=== PATIENT | male | born 1955 | race Caucasian/White ===

== ENCOUNTER 2020-04-14 06:01 | Day surgery (SDC) | payer SELFPAY ==
--- NOTE | 2020-04-05 09:05 | HP_ITS ---
Intake Vital Signs 04/05/20 Height 5 ft 9 in 04/05/20 Weight: 209 lb 7 oz 04/05/20 BMI 30.9 04/05/20 BP 141/73 H 04/05/20 Blood Pressure Location Rt brachial 04/05/20 Position Sitting 04/05/20 Respiration 20 H 04/05/20 Pulse 72 04/05/20 Temp 98.6 F 04/05/20 Temp Source Temporal 04/05/20 Pulse Oximetry (%) 98 Intake Visit Reasons: PORT PLACEMENT Chief Complaint: port consult Genetic Counsellor Required: No Is patient in pain?: No Allergies No Known Allergies Allergy (Verified 04/05/20 08:22) Medications gabapentin 100 mg capsule 300 mg PO DAILY PRN cap 04/05/20 [History] PFSH Medical History (Updated 04/05/20 @ 09:[address] John Anand MD) Pityriasis rubra pilaris (Acute) Psoriasis (Acute) Lymphoma (Acute) Surgical History History of cataract surgery (Acute) Family History (Updated 04/05/20 @ 08:21 by Thania Rutherford) Mother Cancer Other No pertinent family history Social History (Updated 04/05/20 @ 09:[address] John Anand MD) Smoking Status: Light Smoker (<10/day) HPI HPI HPI: ALFONSO KENYON, is a 64 M who presents to the office today for HPI HPI Surgical H&P: Yes HPI: ALFONSO KENYON, is a 64 M who presents to the office today for port evaluation. I discussed port placement with the patient. The patient has lymphoma and is requiring access for Keytruda. ROS General General: Yes fatigue; no weight change, appetite, colon cancer, breast cancer or weakness HEENT HEENT: Yes eye surgery; no difficulty swallowing, eye injury, swollen glands or hoarseness Endo Endocrine: No thyroid disease, diabetes mellitus, thyroid cancer, Hair loss, heat intolerance or cold intolerance Skin Skin: Yes rash; no changing moles Musc Musculoskeletal: No back problems, arthritis, rheumatoid arthritis, gout or joint pain Cardio Cardiovascular: No murmur, pacemaker, heart disease, atrial fibrillation, high blood pressure, heart attack, heart stent, palpitations, shortness of breat with exertion or chest pain Psych Psychiatric: No depression, anxiety or hearing voices Resp Respiratory: No shortness of breath, No sleep apnea, No cough, No COPD, No asthma, No emphysema, No wheezing Gastro Gastrointestinal: No abdominal pain, No nausea or vomiting, No diarrhea, No constipation, No blood in stool, No acid reflux, No hemorrhoids, No ulcers, No gallbladder problem, No black,tarry stools Geovany Hematologic: No blood thinners, No blood disorders, No bleeding, No anemia, No blood clots Neuro Neurologic: No weakness Exam Const General: cooperative Orientation: alert, oriented x3 Resp Effort & Inspection: normal respiratory effort Auscultation: clear to auscultation bilaterally Cardio Rate: regular rate Rhythm: regular rhythm Heart Sounds: no murmurs GI Inspection: non-distended Palpation: soft, nontender Assessment & Plan Problems 1. Adjustment and management of vascular access device Z45.2 2. 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 The patient is seeing he has oncologist today for chemo education. The patient has not fully decided if he is having treatment until he hears more about the medication. If he does hear more about the medication he will call us and schedule port placement. I discussed the risks of the procedure including but not limited to bleeding, infection, pneumothorax, line infection, DVT. The patient understands the risks and is well to proceed if he decides to proceed with Keytruda. We discussed the current risks associated with COVID-19. While it is understood that there is a community spread of COVID-19, the risk of gamal COVID-19 while at [facility] ([facility]) is very low; however, the risk cannot be completely mitigated because of the community spread of the disease. We discussed in detail the risk of exposure to and/or potential harm posed by the COVID-19 virus with having a surgery/procedure at this time versus the risk of delaying the surgery/procedure. It is not possible to know either the risk of delaying the surgery or procedure or chance of getting an infection with perfect accuracy, but a joint decision was made to proceed at this time with the scheduled surgery/procedure as indicated on the consent form. Patient was notified that we will need to comply with any screening or testing [facility] wishes to perform or that surgery may be delayed for any positive results. 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 There are no clinical changes since date of exam.
[2020-04-05 09:20] VITALS: BMI 30.2
[2020-04-14] VITALS (9 sets, daily range): BP systolic 112–132; BP diastolic 53–75; PULSE 60–82; RESP 16; TEMP 36.4–37.4; O2SAT 97–100; BMI 31.2
[2020-04-14] MEDS: Lactated Ringers 1,000 ML 100 ML IV (07:00)
[2020-04-14] MEDS: Cefazolin 2 GM in 0.9% Normal Saline 100 ML IV (07:36)
[2020-04-14] MEDS: Bupiv/Epi 0.5% Mpf 30 ML Vial (08:00)
--- NOTE | 2020-04-14 08:25 | PCM.OPRPT ---
Problem List (1) Encounter for adjustment and management of vascular access device Status: Acute Report of Operation Date of Procedure: 04/14/20 Pre-Operative Diagnosis: Lymphoma. need for vascular access Post-Operative Diagnosis: Same Surgery/Procedure Performed:: Ultrasound and fluoroscopy guided right chest port placement utilizing right IJ Description of Procedure: After obtaining informed consent patient was brought back to the operating room MAC anesthesia was induced and the right chest and neck were prepped in normal sterile fashion. Ultrasound was used to evaluate both IJs and the right IJ was selected. Next, using a needle, the right IJ was accessed and a guidewire was passed on into the superior vena cava under fluoroscopy guidance. A small incision was made over the puncture site and the dilator introducer was placed over the guidewire. Next this was capped and the pocket was made for the port. 1% lidocaine with epinephrine was injected in the proposed port site. An incision was made with scalpel. Electrocautery was used to make a pocket under the skin and subcutaneous tissue. Hemostasis was obtained. Next, the catheter was tunneled up to the neck incision site and placed through the introducer. The peel-away introducer was removed and the position of the catheter was confirmed on fluoroscopy. Next, the catheter was trimmed and attached to the port with the locking device. Interrupted 2-0 Vicryl sutures were used to anchor the port to the chest wall and then the port was placed inside the pocket. The pocket was then flushed with saline and the port irrigated with saline. There was good blood return and the port flushed easily. Next, heparin was injected into the port. The skin was closed with subcutaneous interrupted 3-0 Vicryl sutures. A single 3-0 Vicryl sutures placed under the skin at the neck incision site. Steri-Strips were placed as well as op sites. Patient tolerated procedure well, was taken to PACU in stable condition. Chest x-ray will be obtained. Grafts/Implants Used: 8 [place] [employer] - Admit VTE Documentation VTE Mechan Device Prophylaxis: SCD's
--- NOTE | 2020-04-14 08:26 | DCINST_ITS ---
Discharge Diet: No Restrictions - Pain medication may cause nausea. You should typically eat light foods as you take your pain medication. Discharge Activity: Return to Normal Activity, May Shower - with your bandage in place in 1-2 days after surgery. DO NOT SHOWER WHEN YOUR PORT IS ACCESSED. Call your doctor if your incision/area has: Continuous Slow Oozing, Sudden Increased Bleeding, Increased Pain/ Swelling, Increased Redness Call your doctor if you observe: Fever of 101 or Higher Remove Dressing in (days):: 3 - When you remove the bandage, leave the steri- strips intact until they fall off. Allergies/Adverse Reactions: Allergies No Known Allergies Allergy (Verified 04/10/20 13:11) Medications to take at Discharge Lidocaine/Prilocaine [Lidocaine-Prilocaine Cream] 1 applicatio TP DAILY PRN PRN 30 Days #1 tube 04/05/20 Multivit-Min/Folic/Vit K/Lycop [Men's Multivitamin Tablet] 1 ea PO DAILY 04/05/20 gabapentin 100 mg capsule 100 mg PO DAILY PRN cap 04/05/20 Primary Care Physician: Robert Santoyo MD [Primary Care Provider] - Test Results: Test results from this visit will be discussed in further detail at your follow- up appointment, if applicable. Please Follow Up With: John Anand MD When: Please call to schedule 2 week follow up appointment. [phone]
--- NOTE | 2020-04-14 08:30 | RAD_ITS ---
STUDY: X-RAY CHEST REASON FOR EXAM: Male, 64 years old. POST PORT PLACEMENT TECHNIQUE: Single AP portable view of the chest. COMPARISON: None. FINDINGS: A right-sided portacatheter has been placed. The tip is at the junction of superior vena cava and right atrium. The lungs are clear and expanded. There is no demonstrated pleural abnormality. Normal size heart. Normal mediastinum and rd. Normal visualized pulmonary arteries. Normal visualized aortic arch and descending thoracic aorta. There are diffuse degenerative changes of the visualized thoracic spine. There is degenerative osteoarthritis of the bilateral shoulders. There is no demonstrated abnormality of the visualized soft tissue structures of the upper abdomen. RAD/CXR for Line Placement IMPRESSION: The tip of the right briseyda catheter is at the junction of the superior vena cava and right atrium. Electronically Signed: Beto Mesa, at 9:10 EDT , Service support ,
== END 2020-04-14 09:51 | disposition home or self-care (01) ==
LOC: SDC 06:04 → AC 06:07
PROVIDERS: Anesthesiology; PCP Family Medicine; Referring Provider Surgery; Visit Provider Surgery
PROC: (CPT 36561; principal; 2020-04-14 07:15)
DX: Z45.2 Encounter for adjustment and management of vascular access device (principal); C84.00 Mycosis fungoides, unspecified site; F17.200 Nicotine dependence, unspecified, uncomplicated; Z11.59 Encounter for screening for other viral diseases
CPT/HCPCS: 36561; 71045; 77001; 87635; G2023; J7120; C1788; U0003

== ENCOUNTER 2020-12-21 08:45 | Outpatient (RCR) | payer OTHER, SELFPAY ==
[2020-12-06 09:20] VITALS: BMI 31.4
[2020-12-14 09:21] VITALS: BP 146/67; PULSE 73; RESP 20; TEMP 36.6; BMI 31.4
--- NOTE | 2020-12-14 13:22 | PCM.WC.HP ---
(1) Ulcer of left lower extremity with fat layer exposed Status: Chronic Code(s): L97.922 - Non-pressure chronic ulcer of unspecified part of left lower leg with fat layer exposed (2) Ulcer of right lower extremity with fat layer exposed Status: Chronic Code(s): L97.912 - Non-pressure chronic ulcer of unspecified part of right lower leg with fat layer exposed (3) Ulcer of upper extremity with fat layer exposed Status: Chronic Code(s): L98.492 - Non-pressure chronic ulcer of skin of other sites with fat layer exposed Comment: Right Forearm (4) Mycosis fungoides lymphoma Status: Chronic Qualifiers: Code(s): C84.00 - Mycosis fungoides, unspecified site Comment: Generalized involvement of skin History of Present Illness Date of Service: 12/14/20 Chief Complaint: Non healing uclers History of Wound: Mr Rodriguez was referred to the wound center By his oncologist due to nonhealing ulcers. Patient states that initial onset was at least 4 to 6 months ago. 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 He states that he has been trying different wound care at home including hydrogen peroxide, Epson salt and antibiotic ointment. No significant improvement. Most concerning is his right lower extremity which has blackened areas. He feels well otherwise. Denies chills, fever, cough or shortness of breath. Continues to work closely with his oncologist. Past Medical History Past Medical History: Chronic Problems (Last Reviewed 12/14/20 @ 11:46 by Belkys Madrigal) Ulcer of left lower extremity with fat layer exposed (Chronic) Ulcer of right lower extremity with fat layer exposed (Chronic) Ulcer of upper extremity with fat layer exposed (Chronic) Right Forearm Anemia (Chronic) Hyperglycemia (Chronic) Mycosis fungoides lymphoma (Chronic) Generalized involvement of skin Allergies/Adverse Reactions: Allergies No Known Allergies Allergy (Verified 12/06/20 09:18) Home Medications: Ambulatory Orders Medication Instructions Recorded Lidocaine/Prilocaine 1 applicatio TP DAILY PRN PRN 30 04/05/20 [Lidocaine-Prilocaine Cream] Days #1 tube Multivit-Min/Folic/Vit K/Lycop 1 ea PO DAILY 04/05/20 [Men's Multivitamin Tablet] Protocel 1.25 ml PO BID 04/18/20 Gabapentin [Neurontin] 100 mg PO DAILY #100 cap 01/13/21 Aspirin E.C. [Ecotrin] 81 mg PO DAILY@0800 12/06/20 Iron Liquid Drops 4 - 5 drp PO DAILY 12/06/20 Smoking Status: Current some day smoker Review of Systems Constitutional: Denies: Anorexia, Chills, Fever, Malaise Eyes: Denies: Blurred vision, Pain, Redness HEENT: Denies: Difficulty Hearing, Difficulty Swallowing, Sore Throat Cardiovascular: Denies: Chest Pain, Claudication, Chest Pressure, Chest Tightness Respiratory: Denies: Cough, Hemoptysis, Wheezing Gastrointestinal: Denies: Abdominal Pain, Hematemesis, Vomiting Genitourinary: Denies: Hematuria Skin: Denies: Jaundice - Physical Exam Vital Signs Temp Pulse Resp BP 98 F 73 20 H 146/67 H 12/14/20 09:21 12/14/20 09:21 12/14/20 09:21 12/14/20 09:21 General: Alert, Oriented x3, Cooperative, No apparent distress HEENT: Atraumatic, Normocephalic Oral: Moist Mucosa Neck: Supple Lungs: Normal air movement Extremities: No cyanosis, Edema Skin: Ulcer/ Wound Wound Measurements and Assessment WC - Nurse 1 - General Ulcer Measurement Start: 12/14/20 09:19 Freq: Status: Active Protocol: Activity Type Activity Date Activity User E-Sign Co-Sign Detail Recorded Client Recorded Date Recorded By Document 12/14/20 09:21 DL [id number] 12/14/20 09:58 DL 12/14/20 09:21 Wound Center Nurse 1 [Ulcer Assessment] #4 L lat LE -Current Size (cm) - Length 4 -Current Size (cm) - Width 5.8 -Current Size (cm) - Depth 0.5 -Total Square Cm 23.2 -Photo Taken No -Exudate Amt Medium -Exudate Type Serosanguineous -Wound Margin Distinct, Outline Attached -Granulation Amt Medium (34-66%) -Granulation Quality Red -Necrosis Amt Medium (34-66%) -Necrotic Tissue Type Adherent Slough -Structure Exposed N/A -Texture (Francisca-wound Skin Appearance) Scarring -Moisture (Francisca-wound Skin Appearance No Abnormality ) -Color (Francisca-wound Skin Appearance) Rubor -Temperature (Francisca-wound Skin No Abnormality Appearance) (Pt Warm) -Tenderness on Palpation (Francisca-wound No Skin Appearance) -Ulcer Cleansing Wound Cleanser -Foul Odor after Cleansing No -Anesthetic Used 4% Lidocaine Solution #3 L Hip -Current Size (cm) - Length 1.6 -Current Size (cm) - Width 1.2 -Current Size (cm) - Depth 0.3 -Total Square Cm 1.92 -Photo Taken Yes -Classification - Thickness Full Thickness without Exposed Support Structure -Exudate Amt Medium -Exudate Type Serosanguineous -Wound Margin Distinct, Outline Attached -Granulation Amt None Present (0 %) -Necrosis Amt Large (67-100%) -Necrotic Tissue Type Adherent Slough -Structure Exposed N/A -Texture (Francisca-wound Skin Appearance) Scarring -Moisture (Francisca-wound Skin Appearance No Abnormality ) -Color (Francisca-wound Skin Appearance) Rubor -Temperature (Francisca-wound Skin No Abnormality Appearance) (Pt Warm) -Tenderness on Palpation (Francisca-wound No Skin Appearance) -Ulcer Cleansing Wound Cleanser -Foul Odor after Cleansing No -Anesthetic Used 4% Lidocaine Solution #2 R Knee -Current Size (cm) - Length 6.2 -Current Size (cm) - Width 10.2 -Current Size (cm) - Depth 0.6 -Total Square Cm 63.24 -Photo Taken Yes -Classification - Thickness Full Thickness without Exposed Support Structure -Exudate Amt Large -Exudate Type Serosanguineous -Wound Margin Distinct, Outline Attached -Granulation Amt Small (1-33%) -Granulation Quality Red -Necrosis Amt Large (67-100%) -Necrotic Tissue Type Adherent Slough -Structure Exposed N/A -Texture (Francisca-wound Skin Appearance) Localized Edema ,Scarring -Moisture (Francisca-wound Skin Appearance Weeping ) -Color (Francisca-wound Skin Appearance) Erythema -Temperature (Francisca-wound Skin No Abnormality Appearance) (Pt Warm) -Tenderness on Palpation (Francisca-wound No Skin Appearance) -Ulcer Cleansing Wound Cleanser -Foul Odor after Cleansing Yes -Anesthetic Used 4% Lidocaine Solution #1 RIGHT Arm -Current Size (cm) - Length 2.2 -Current Size (cm) - Width 3.3 -Current Size (cm) - Depth 0.3 -Total Square Cm 7.26 -Photo Taken Yes -Exudate Amt Medium -Exudate Type Serosanguineous -Wound Margin Distinct, Outline Attached -Granulation Amt Medium (34-66%) -Granulation Quality Red -Necrosis Amt Medium (34-66%) -Necrotic Tissue Type Adherent Slough -Structure Exposed N/A -Texture (Francisca-wound Skin Appearance) Localized Edema ,Scarring -Moisture (Francisca-wound Skin Appearance No Abnormality ) -Color (Francisca-wound Skin Appearance) Erythema,Palor -Temperature (Francisca-wound Skin No Abnormality Appearance) (Pt Warm) -Tenderness on Palpation (Francisca-wound No Skin Appearance) -Ulcer Cleansing Wound Cleanser -Foul Odor after Cleansing No -Anesthetic Used 4% Lidocaine Solution WC - Nurse 2 - General Ulcer CM Notes Start: 12/14/20 09:19 Freq: Status: Active Protocol: Activity Type Activity Date Activity User E-Sign Co-Sign Detail Recorded Client Recorded Date Recorded By Document 12/14/20 10:22 MW [id number] 12/14/20 10:38 MW 12/14/20 10:22 Wound Center Nurse 2 [Procedure/Treatment] #4 L lat LE -Time 10:34 -Correct Patient Yes -Correct Side, Site, Position Yes -Correct Procedure Yes -Procedure Performed No -Wound/Ulcer Outcome Not Healed #3 L Hip -Time 10:34 -Correct Patient Yes -Correct Side, Site, Position Yes -Correct Procedure Yes -Procedure Performed No -Wound/Ulcer Outcome Not Healed #2 R Knee -Time 10:34 -Correct Patient Yes -Correct Side, Site, Position Yes -Correct Procedure Yes -Procedure Performed No -Wound/Ulcer Outcome Healed- Epithelialized #1 RIGHT Arm -Time 10:34 -Correct Patient Yes -Correct Side, Site, Position Yes -Correct Procedure Yes -Procedure Performed No [See Physician Procedure note for Specifics] Pain Scale: 0-10 Numeric [Pain] -Is Patient Pain Free? Yes Musculoskeletal: No Muscle Wasting Neurological: Cranial nerves II-XII grossly intact Psych/Mental Status: Normal Affect Debridement Note Post-Debridement Measurements/Treatment - Nurse 2 - General Ulcer CM Notes Start: 12/14/20 09:19 Freq: Status: Active Protocol: Activity Type Activity Date Activity User E-Sign Co-Sign Detail Recorded Client Recorded Date Recorded By Document 12/14/20 10:22 MW [id number] 12/14/20 10:38 MW 12/14/20 10:22 Wound Center Nurse 2 #4 L lat LE -Time 10:34 -Correct Patient Yes -Correct Side, Site, Position Yes -Correct Procedure Yes -Procedure Performed No -Wound/Ulcer Outcome Not Healed #3 L Hip -Time 10:34 -Correct Patient Yes -Correct Side, Site, Position Yes -Correct Procedure Yes -Procedure Performed No -Wound/Ulcer Outcome Not Healed #2 R Knee -Time 10:34 -Correct Patient Yes -Correct Side, Site, Position Yes -Correct Procedure Yes -Procedure Performed No -Wound/Ulcer Outcome Healed- Epithelialized #1 RIGHT Arm -Time 10:34 -Correct Patient Yes -Correct Side, Site, Position Yes -Correct Procedure Yes -Procedure Performed No Pain Scale: 0-10 Numeric Is Patient Pain Free? Yes No debridement was completed today Assessment/Plan Active Problems (Last Reviewed 12/14/20 @ 11:46 by Belkys Madrigal) Ulcer of left lower extremity with fat layer exposed (Chronic) Ulcer of right lower extremity with fat layer exposed (Chronic) Ulcer of upper extremity with fat layer exposed (Chronic) Right Forearm Mycosis fungoides lymphoma (Chronic) Generalized involvement of skin Assessment: Generalized areas of ulceration secondary to mycosis fungoides Plan: No debridement completed today. Patient not open to debridement. Most significant ulcer is on his right lower extremity with areas of necrotic tissue. Santyl to right lower extremity and hydrogel to all other ulcers. Cover with moistened gauze. Change daily to twice daily depending on drainage. Double layer Tubigrip for edema management. He was advised to increase protein intake, vitamin C and zinc. He voiced understanding. His questions were answered and he was advised to call with any further questions or concerns. Follow-up in a week. This note was generated with MyCheck dictation software. It may contain incorrect words, spelling, and punctuation that were not noted in checking the note before signing. Office Visits / Consults: [id number] OV L4 New
[2020-12-21 08:23] VITALS: BP 157/69; PULSE 77; TEMP 36.5; BMI 31.4
--- NOTE | 2020-12-21 09:50 | PN.PCM_ITS ---
(1) Ulcer of left lower extremity with fat layer exposed Status: Chronic Code(s): L97.922 - Non-pressure chronic ulcer of unspecified part of left lower leg with fat layer exposed (2) Ulcer of right lower extremity with fat layer exposed Status: Chronic Code(s): L97.912 - Non-pressure chronic ulcer of unspecified part of right lower leg with fat layer exposed (3) Ulcer of upper extremity with fat layer exposed Status: Chronic Code(s): L98.492 - Non-pressure chronic ulcer of skin of other sites with fat layer exposed Comment: Right Forearm (4) Mycosis fungoides lymphoma Status: Chronic Qualifiers: Code(s): C84.00 - Mycosis fungoides, unspecified site Comment: Generalized involvement of skin Type of Wound Date of Service: 12/21/20 Chief Complaint: Non healing uclers History of Wound: Mr Rodriguez was referred to the wound center By his oncologist due to nonhealing ulcers. Patient states that initial onset was at least 4 to 6 months ago. 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 He states that he has been trying different wound care at home including hydrogen peroxide, Epson salt and antibiotic ointment. No significant improvement. Most concerning is his right lower extremity which has blackened areas. He feels well otherwise. Denies chills, fever, cough or shortness of breath. Continues to work closely with his oncologist. Progress of Wound: No new concerns at this time. Tolerating Santyl and hydrogel without any concerns. Left thigh ulcer with minimal area left. Right knee with better granulation. - Physical Exam Vital Signs Temp Pulse Resp BP 97.7 F L 77 20 H 157/69 H 12/21/20 08:23 12/21/20 08:23 12/14/20 09:21 12/21/20 08:23 General: Alert, Oriented x3, Cooperative, No apparent distress HEENT: Atraumatic, Normocephalic Oral: Moist Mucosa Lungs: Normal air movement Extremities: No cyanosis, Edema Skin: Ulcer/ Wound Wound Measurements and Assessment WC - Nurse 1 - General Ulcer Measurement Start: 12/14/20 09:19 Freq: Status: Active Protocol: Activity Type Activity Date Activity User E-Sign Co-Sign Detail Recorded Client Recorded Date Recorded By Document 12/21/20 08:23 WINNIE [id number] 12/21/20 08:37 WINNIE 12/21/20 08:23 Wound Center Nurse 1 [Ulcer Assessment] #4 L lat LE -Current Size (cm) - Length 2.4 -Current Size (cm) - Width 5.8 -Current Size (cm) - Depth 0.2 -Total Square Cm 13.92 -Exudate Amt Medium -Exudate Type Serosanguineous -Wound Margin Distinct, Outline Attached -Granulation Amt Medium (34-66%) -Granulation Quality Red -Necrosis Amt Medium (34-66%) -Necrotic Tissue Type Adherent Slough -Texture (Francisca-wound Skin Appearance) Assessed, Scarring -Moisture (Francisca-wound Skin Appearance No Abnormality, ) Assessed -Color (Francisca-wound Skin Appearance) No Abnormality, Assessed -Temperature (Francisca-wound Skin No Abnormality Appearance) (Pt Warm) -Tenderness on Palpation (Francisca-wound No Skin Appearance) -Ulcer Cleansing Rinsed/ Irrigated with Saline -Foul Odor after Cleansing No -Anesthetic Used 4% Lidocaine Solution #3 L Hip -Current Size (cm) - Length 0.2 -Current Size (cm) - Width 0.3 -Current Size (cm) - Depth 0.1 -Total Square Cm 0.06 -Exudate Amt Medium -Exudate Type Serosanguineous -Wound Margin Distinct, Outline Attached -Granulation Amt None Present (0 %) -Necrosis Amt None Present (0 %) -Texture (Francisca-wound Skin Appearance) Assessed, Scarring -Moisture (Francisca-wound Skin Appearance Assessed,Dry/ ) Scaly -Color (Francisca-wound Skin Appearance) No Abnormality, Assessed -Temperature (Francisca-wound Skin No Abnormality Appearance) (Pt Warm) -Tenderness on Palpation (Francisca-wound No Skin Appearance) -Ulcer Cleansing Rinsed/ Irrigated with Saline -Foul Odor after Cleansing No -Anesthetic Used 4% Lidocaine Solution #2 R Knee -Current Size (cm) - Length 7 -Current Size (cm) - Width 10 -Current Size (cm) - Depth 1 -Total Square Cm 70 -Exudate Amt Large -Exudate Type Serosanguineous -Wound Margin Distinct, Outline Attached -Granulation Amt Large (67-100%) -Granulation Quality Red -Necrosis Amt Medium (34-66%) -Necrotic Tissue Type Adherent Slough -Structure Exposed Fat Layer Exposed -Texture (Francisca-wound Skin Appearance) Assessed, Scarring -Moisture (Francisca-wound Skin Appearance Assessed, ) Maceration -Color (Francisca-wound Skin Appearance) No Abnormality, Assessed -Temperature (Francisca-wound Skin No Abnormality Appearance) (Pt Warm) -Tenderness on Palpation (Francisca-wound No Skin Appearance) -Ulcer Cleansing Rinsed/ Irrigated with Saline -Foul Odor after Cleansing Yes -Anesthetic Used 4% Lidocaine Solution #1 RIGHT Arm -Current Size (cm) - Length 2.5 -Current Size (cm) - Width 3.7 -Current Size (cm) - Depth 0.5 -Total Square Cm 9.25 -Exudate Amt Large -Exudate Type Serosanguineous -Wound Margin Thickened -Granulation Amt Large (67-100%) -Granulation Quality Red -Necrosis Amt Small (1-33%) -Necrotic Tissue Type Adherent Slough -Texture (Francisca-wound Skin Appearance) Assessed, Scarring -Moisture (Francisca-wound Skin Appearance Assessed ) -Color (Francisca-wound Skin Appearance) Assessed -Temperature (Francisca-wound Skin No Abnormality Appearance) (Pt Warm) -Tenderness on Palpation (Francisca-wound No Skin Appearance) -Ulcer Cleansing Rinsed/ Irrigated with Saline -Foul Odor after Cleansing No -Anesthetic Used 4% Lidocaine Solution [Edema Assessment] -Right Calf (cm) 40 -Right Ankle (cm) 26 -Left Calf (cm) 38 -Left Ankle (cm) 28.5 WC - Nurse 2 - General Ulcer CM Notes Start: 12/14/20 09:19 Freq: Status: Active Protocol: Activity Type Activity Date Activity User E-Sign Co-Sign Detail Recorded Client Recorded Date Recorded By Document 12/21/20 08:47 MW [id number] 12/21/20 09:08 MW 12/21/20 08:47 Wound Center Nurse 2 [Procedure/Treatment] #4 L lat LE -Time 08:48 -Correct Patient Yes -Correct Side, Site, Position Yes -Correct Procedure Yes -Procedure Performed Yes -Type of Procedure Debridement -Clinical Debridement Subcutaneous -Tissue Removed Subcutaneous -Post Debridement (cm) - Length 5.0 -Post Debridement (cm) - Width 6.0 -Post Debridement (cm) - Depth 0.1 -Total Square (Post) (cm) 30.00 -Area of Debridement (cm) - Length 5.0 -Area of Debridement (cm) - Width 6.0 -Total Square (Area) (cm) 30.00 -Tunneling No -Undermining/Tunneling No -Circular Undermining No -Wound/Ulcer Outcome Not Healed -Ulcer Cleansing Not Cleansed -Foul Odor after Cleansing No -Bioengineered Tissue No -Bleeding Controlled with NA -Offloading No -Treatment Response Procedure Tolerated Well -Debridement - Subq, 1st 20sq cm Yes -Debridement, SubQ, ea addt'l 20sq cm 1 or part thereof #3 L Hip -Time 08:48 -Correct Patient Yes -Correct Side, Site, Position Yes -Correct Procedure Yes -Procedure Performed No -Tunneling No -Undermining/Tunneling No -Circular Undermining No -Wound/Ulcer Outcome Not Healed -Ulcer Cleansing Rinsed/ Irrigated with Saline -Foul Odor after Cleansing No -Bioengineered Tissue No -Bleeding Controlled with Pressure -Offloading No -Treatment Response Procedure Tolerated Well #2 R Knee -Time 08:49 -Correct Patient Yes -Correct Side, Site, Position Yes -Correct Procedure Yes -Procedure Performed No -Tunneling No -Undermining/Tunneling No -Circular Undermining No -Wound/Ulcer Outcome Not Healed -Ulcer Cleansing Not Cleansed -Foul Odor after Cleansing No -Bioengineered Tissue No -Bleeding Controlled with NA -Treatment Response Procedure Tolerated Well #1 RIGHT Arm -Time 08:50 -Correct Patient Yes -Correct Side, Site, Position Yes -Correct Procedure Yes -Procedure Performed Yes -Type of Procedure Debridement -Clinical Debridement Subcutaneous -Tissue Removed Subcutaneous -Post Debridement (cm) - Length 2.5 -Post Debridement (cm) - Width 5.0 -Post Debridement (cm) - Depth 0.3 -Total Square (Post) (cm) 12.50 -Area of Debridement (cm) - Length 2.5 -Area of Debridement (cm) - Width 5.0 -Total Square (Area) (cm) 12.50 -Tunneling No -Undermining/Tunneling No -Circular Undermining No -Wound/Ulcer Outcome Not Healed -Ulcer Cleansing Rinsed/ Irrigated with Saline -Foul Odor after Cleansing No -Bioengineered Tissue No -Bleeding Controlled with Pressure -Offloading No -Debridement - Subq, 1st 20sq cm No [See Physician Procedure note for Specifics] Pain Scale: 0-10 Numeric [Pain] -Is Patient Pain Free? Yes WC - Nurse 3 - General Ulcer D/C NN Start: 12/14/20 09:19 Freq: Status: Active Protocol: Activity Type Activity Date Activity User E-Sign Co-Sign Detail Recorded Client Recorded Date Recorded By Document 12/21/20 09:18 KR [id number] 12/21/20 09:24 KR 12/21/20 09:18 Wound Care Nurse 3 [Wound Dressing] #4 L lat LE -Ulcer Cleansing Rinsed/ Irrigated with Saline -Primary Dressing Applied C Hydrogel ($) -Primary Dressing Covered/Secured Dry Gauze, with Secured with Tape #3 L Hip -Ulcer Cleansing Rinsed/ Irrigated with Saline -Primary Dressing Applied C Hydrogel ($) -Primary Dressing Covered/Secured Dry Gauze,Dry with Gauze & Roll Gauze,Secured with Tape #2 R Knee -Ulcer Cleansing Rinsed/ Irrigated with Saline -Primary Dressing Covered/Secured Dry Gauze, with Secured with Tape #1 RIGHT Arm -Ulcer Cleansing Rinsed/ Irrigated with Saline -Primary Dressing Applied C Hydrogel ($) -Primary Dressing Covered/Secured Dry Gauze,Dry with Gauze & Roll Gauze,Secured with Tape [Compression Applied] Left -Tubular Bandage Double Layer -Size of Tubigrip Used Size F -Size F ($) 2 Pain Scale: 0-10 Numeric [Pain] -Is Patient Pain Free? Yes - Visit Discharge [Visit Discharge Information] -Discharge Condition Stable -Ambulatory Status Ambulatory -Transportation Private Auto -Accompanied by Musculoskeletal: No Muscle Wasting Neurological: Cranial nerves II-XII grossly intact Psych/Mental Status: Normal Affect Debridement Note Post-Debridement Measurements/Treatment - Nurse 2 - General Ulcer CM Notes Start: 12/14/20 09:19 Freq: Status: Active Protocol: Activity Type Activity Date Activity User E-Sign Co-Sign Detail Recorded Client Recorded Date Recorded By Document 12/14/20 10:22 MW [id number] 12/14/20 10:38 MW Document 12/21/20 08:47 MW [id number] 12/21/20 09:08 MW 12/14/20 12/21/20 10:22 08:47 Wound Center Nurse 2 #4 L lat LE -Time 10:34 08:48 -Correct Patient Yes Yes -Correct Side, Site, Position Yes Yes -Correct Procedure Yes Yes -Procedure Performed No Yes -Type of Procedure Debridement -Clinical Debridement Subcutaneous -Tissue Removed Subcutaneous -Post Debridement (cm) - Length 5.0 -Post Debridement (cm) - Width 6.0 -Post Debridement (cm) - Depth 0.1 -Total Square (Post) (cm) 30.00 -Area of Debridement (cm) - Length 5.0 -Area of Debridement (cm) - Width 6.0 -Total Square (Area) (cm) 30.00 -Tunneling No -Undermining/Tunneling No -Circular Undermining No -Wound/Ulcer Outcome Not Healed Not Healed -Ulcer Cleansing Not Cleansed -Foul Odor after Cleansing No -Bioengineered Tissue No -Bleeding Controlled with NA -Offloading No -Treatment Response Procedure Tolerated Well -Debridement - Subq, 1st 20sq cm Yes -Debridement, SubQ, ea addt'l 20sq cm 1 or part thereof #3 L Hip -Time 10:34 08:48 -Correct Patient Yes Yes -Correct Side, Site, Position Yes Yes -Correct Procedure Yes Yes -Procedure Performed No No -Tunneling No -Undermining/Tunneling No -Circular Undermining No -Wound/Ulcer Outcome Not Healed Not Healed -Ulcer Cleansing Rinsed/ Irrigated with Saline -Foul Odor after Cleansing No -Bioengineered Tissue No -Bleeding Controlled with Pressure -Offloading No -Treatment Response Procedure Tolerated Well #2 R Knee -Time 10:34 08:49 -Correct Patient Yes Yes -Correct Side, Site, Position Yes Yes -Correct Procedure Yes Yes -Procedure Performed No No -Tunneling No -Undermining/Tunneling No -Circular Undermining No -Wound/Ulcer Outcome Healed- Not Healed Epithelialized -Ulcer Cleansing Not Cleansed -Foul Odor after Cleansing No -Bioengineered Tissue No -Bleeding Controlled with NA -Treatment Response Procedure Tolerated Well #1 RIGHT Arm -Time 10:34 08:50 -Correct Patient Yes Yes -Correct Side, Site, Position Yes Yes -Correct Procedure Yes Yes -Procedure Performed No Yes -Type of Procedure Debridement -Clinical Debridement Subcutaneous -Tissue Removed Subcutaneous -Post Debridement (cm) - Length 2.5 -Post Debridement (cm) - Width 5.0 -Post Debridement (cm) - Depth 0.3 -Total Square (Post) (cm) 12.50 -Area of Debridement (cm) - Length 2.5 -Area of Debridement (cm) - Width 5.0 -Total Square (Area) (cm) 12.50 -Tunneling No -Undermining/Tunneling No -Circular Undermining No -Wound/Ulcer Outcome Not Healed -Ulcer Cleansing Rinsed/ Irrigated with Saline -Foul Odor after Cleansing No -Bioengineered Tissue No -Bleeding Controlled with Pressure -Offloading No -Debridement - Subq, 1st 20sq cm No Pain Scale: 0-10 Numeric Is Patient Pain Free? Yes Yes WC - Nurse 3 - General Ulcer D/C NN Start: 12/14/20 09:19 Freq: Status: Active Protocol: Activity Type Activity Date Activity User E-Sign Co-Sign Detail Recorded Client Recorded Date Recorded By Document 12/21/20 09:18 WINNIE [id number] 12/21/20 09:24 WINNIE 12/21/20 09:18 Wound Care Nurse 3 #4 L lat LE -Ulcer Cleansing Rinsed/ Irrigated with Saline -Primary Dressing Applied C Hydrogel ($) -Primary Dressing Covered/Secured with Dry Gauze, Secured with Tape #3 L Hip -Ulcer Cleansing Rinsed/ Irrigated with Saline -Primary Dressing Applied C Hydrogel ($) -Primary Dressing Covered/Secured with Dry Gauze,Dry Gauze & Roll Gauze,Secured with Tape #2 R Knee -Ulcer Cleansing Rinsed/ Irrigated with Saline -Primary Dressing Covered/Secured with Dry Gauze, Secured with Tape #1 RIGHT Arm -Ulcer Cleansing Rinsed/ Irrigated with Saline -Primary Dressing Applied C Hydrogel ($) -Primary Dressing Covered/Secured with Dry Gauze,Dry Gauze & Roll Gauze,Secured with Tape Left -Tubular Bandage Double Layer -Size of Tubigrip Used Size F -Size F ($) 2 Pain Scale: 0-10 Numeric Is Patient Pain Free? Yes WC - Visit Discharge Discharge Condition Stable Ambulatory Status Ambulatory Transportation Private Auto Accompanied by Wound debrided: Left knee (cluster) Type of Debridement: Excisional debridement Anesthesia Used: 4% Lidocaine Solution Depth: Down to and including healthy tissue, in the subcutaneous layer Percentage of wound debrided: 100 Instrument Used: 5mm curette Tissue Removed: Slough and devitalized tissue Severity: Fat Layer Exposed Amount of bleeding with debridement: Mild Bleeding Controlled with: Pressure Patient tolerated procedure well - Additional Wound Wound debrided: Right forearm Type of Debridement: Excisional debridement Anesthesia Used: 4% Lidocaine Solution Depth: Down to and including healthy tissue, in the subcutaneous layer Percentage of wound debrided: 100 Instrument Used: 5mm curette Tissue Removed: Slough and devitalized tissue Severity: Fat Layer Exposed Amount of bleeding with debridement: Mild Bleeding Controlled with: Pressure Patient tolerated procedure: Patient tolerated procedure well Assessment/Plan Active Problems (Last Reviewed 12/14/20 @ 11:46 by Belkys Madrigal) Ulcer of left lower extremity with fat layer exposed (Chronic) Ulcer of right lower extremity with fat layer exposed (Chronic) Ulcer of upper extremity with fat layer exposed (Chronic) Right Forearm Mycosis fungoides lymphoma (Chronic) Generalized involvement of skin Assessment: Generalized areas of ulceration secondary to mycosis fungoides Plan: Debridement done as documented above, procedure was well-tolerated. Not open to debridement to right knee. Better granulation tissue noted. Continue Santyl to right lower extremity and hydrogel to all other ulcers. Cover with moistened gauze. Change daily to twice daily depending on drainage. Double layer Tubigrip for edema management. He was advised to increase protein intake, vitamin C and zinc. He voiced understanding. His questions were answered and he was advised to call with any further questions or concerns. Follow-up in a week. This note was generated with [employer] dictation software. It may contain incorrect words, spelling, and punctuation that were not noted in checking the note before signing. [id number]: [id number] Christiane subq tissue 20 sq cm/<
== END 2020-12-24 23:59 ==
LOC: WC 08:45
PROVIDERS: PCP Family Medicine; Referring Provider Internal Medicine Hematology & Oncology; Visit Provider Internal Medicine
DX: L97.812 Non-pressure chronic ulcer of other part of right lower leg with fat layer exposed (principal); C84.00 Mycosis fungoides, unspecified site; L97.822 Non-pressure chronic ulcer of other part of left lower leg with fat layer exposed; L98.492 Non-pressure chronic ulcer of skin of other sites with fat layer exposed; Z79.899 Other long term (current) drug therapy; Z79.82 Long term (current) use of aspirin; F17.200 Nicotine dependence, unspecified, uncomplicated
CPT/HCPCS: 11042; 11045; 99213; G0463

== ENCOUNTER → 2021-01-29 | Outpatient (CLI) | payer SELFPAY ==
--- NOTE | 2021-01-29 | IMM_PTH ---
PATIENT: ALFONSO KENYON LOC: [facility] U#:[id number] AGE/SX: 65/M ROOM: RE01/29/[address]: Dr. John Anand MD : 1955 BED: DIS: 01/29/2021 SPEC #: [id number] RECD: 01/31/21 12:54 STATUS: RICHARD REQ #: [id number] HILARY: 01/29/21 00:[address]: John Anand DEPT: IMMUNOHISTOCHEMISTRY RECD BY: Shereen Cummings ENTERED: 01/31/21 12:57 SP TYPE: IMMUNO OTHR DR: Dr. Robert Santoyo MD Tissues: Skin of arm Procedures: BCL-2 (add) BCL-6 (add) CD10 (add) CD20 (add) CD23 (add) CD43 (add) CD45 (add) CD5 (add) CD79A (add) CYCLIN (add) KI-67 (add) CD3 (initial) PHYSICIAN & [address] [address] SPECIMEN INFORMATION: Tissue Source: Right arm tissue biopsy Clinical Info: Right arm lesion Specimen Number: [id number] CPT code: 00935, 42942 x11 METHODOLOGY: Deparaffinized sections of prefer/formalin-fixed tissue or PAP/DQ stained slides are incubated with monoclonal/polyclonal antibodies/oligonucleotide probes. Localization is made via biotin free immunoperoxidase method. Appropriate controls are performed and reacted as expected. Results on target cell population are indicated in the following table: RESULTS: ANTIBODY / CLONE RESULT CD3 (PS1) positive CD5 (SP10) positive CD10 (56C6) negative CD20 (L26) negative CD23 (1B12) negative CD43 (L60) positive CD45 (RP2/18) positive CD79a (11E3) negative (positive in plasma cells) BCL-2 (bcl-2/100/D5) positive BCL-6 (XI429D/A8) negative Cyclin D1/BCL-1 (SP4) negative Ki-67 (30-9) positive, high These tests were developed and their performance characteristics determined by [facility]. They may not have been cleared or approved by the U.S. Food and Drug Administration. The FDA has determined that such clearance or approval is not necessary. The above immunohistochemical/dualISH markers are ordered and reviewed by the Pathologist. 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 See comment. SJ:huy 02/07/2021 Comment: Immunohistochemistry performed here and additional immunohistochemical stains performed at [facility] supports the above diagnosis. Case has been reviewed in consultation with Dr. Trinidad who concurs with the above diagnosis. IDC:CALVIN
--- NOTE | 2021-01-29 | LES_PTH ---
PATIENT: ALFONSO KENYON LOC: [facility] U#:[id number] AGE/SX: 65/M ROOM: RE01/29/[address]: Dr. John Anand MD : 1955 BED: DIS: 01/29/2021 SPEC #: [id number] RECD: 01/29/21 15:43 STATUS: RICHARD REChema #: [id number] HILARY: 01/29/21 00:[address]: John Anand DEPT: SURGICAL PATHOLOGY RECD BY: Wilson Ackerman ENTERED: 01/30/21 07:47 SP TYPE: Lesion OTHR DR: Dr. 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 See comment. YOHANA:huy 02/07/2021 COMMENT Immunohistochemistry ([id number]) performed here and additional immunohistochemical stains performed at [facility] supports the above diagnosis. The specimen is sent to [facility] for expert opinion, reviewed by Dr. Sha Swartz and the above diagnosis is rendered. The complete report is viewable in the patient's EMR. Correlation with clinical findings and appropriate follow up are necessary. Case has been reviewed in consultation with Dr. Trinidad who concurs with the above diagnosis. IDC:AM MICROSCOPIC DESCRIPTION Slides are reviewed. GROSS DESCRIPTION Received in fixative is one container labeled with the patient's name and designated right arm skin biopsy. The specimen consists of two pieces of robertson-white skin, punch biopsy, measuring 0.3 cm in length and 0.4 cm in diameter and 0.3 cm in length and 0.5 cm in diameter. The entire specimen is submitted in one cassette. / YOHANA:huy 01/30/21 TC:0 CPT: 79573 ADDENDUM ADDENDUM ADDENDUM ADDENDUM ADDENDUM ADDENDUM ADDENDUM ADDENDUM ADDENDUM ADDENDUM 08/10/2021 10:04 ADDENDUM 08/10/2021 10:04 ADDENDUM 08/10/2021 10:04 ADDENDUM 08/10/2021 10:04 ADDENDUM 08/10/2021 10:04 This addendum is added to incorporate an outside pathology consultation report. The case was examined at [facility] (#[id number]) and the following diagnosis was rendered. Skin right arm lesion, punch: CD4-positive T-cell lymphoma. Please see complete above mentioned consultation report in EMR
== END | disposition home or self-care (01) ==
LOC: LABSPEC 15:50
PROVIDERS: PCP Family Medicine; Referring Provider Surgery; Visit Provider Surgery
DX: L98.9 Disorder of the skin and subcutaneous tissue, unspecified (principal)
CPT/HCPCS: 88305; 88341; 88342

== ENCOUNTER → 2021-03-19 08:47 | Outpatient (CLI) | payer SELFPAY ==
[2021-03-05 09:46] VITALS: BMI 29.2
--- NOTE | 2021-03-19 08:59 | EKG12_ITS ---
Test Reason : HIGH RISK MEDS Blood Pressure : / mmHG Vent. Rate : 067 BPM Atrial Rate : 067 BPM P-R Int : 126 ms QRS Dur : 082 ms QT Int : 378 ms P-R-T Axes : 076 014 072 degrees QTc Int : 399 ms Normal sinus rhythm Nonspecific ST abnormality Abnormal ECG Confirmed by SOPHIA ALBERT, HIMANSHU ([id number]), assistant editor MILLY SXETON ([id number]) on 03/20/2021 9:05:55 AM Referred By: Ward James Confirmed By:HIMANSHU CORTES MD
== END ==
PROVIDERS: PCP Family Medicine; Referring Provider Internal Medicine Hematology & Oncology; Visit Provider Internal Medicine Hematology & Oncology
DX: L97.922 Non-pressure chronic ulcer of unspecified part of left lower leg with fat layer exposed (principal); C84.08 Mycosis fungoides, lymph nodes of multiple sites; D50.0 Iron deficiency anemia secondary to blood loss (chronic); Z79.899 Other long term (current) drug therapy
CPT/HCPCS: 93005

== ENCOUNTER → 2022-02-27 | Outpatient (CLI) | payer SELFPAY ==
--- NOTE | 2022-02-27 09:42 | EKG12_ITS ---
Test Reason : HIGH RISK MED Blood Pressure : / mmHG Vent. Rate : 068 BPM Atrial Rate : 068 BPM P-R Int : 134 ms QRS Dur : 088 ms QT Int : 388 ms P-R-T Axes : 041 030 076 degrees QTc Int : 412 ms Normal sinus rhythm Nonspecific ST abnormality Abnormal ECG Confirmed by BIENVENIDO ALBERT, MAURO ([id number]), make up editor MILLY SEXTON ([id number]) on 02/27/2022 9:52:41 AM Referred By: Amber Velázquez Confirmed By:MAURO FARIA MD
== END | disposition home or self-care (01) ==
PROVIDERS: PCP Family Medicine; Referring Provider Nurse Practitioner Family; Visit Provider Nurse Practitioner Family
DX: C84.08 Mycosis fungoides, lymph nodes of multiple sites (principal); Z51.81 Encounter for therapeutic drug level monitoring; Z79.899 Other long term (current) drug therapy
CPT/HCPCS: 93005